=== PATIENT | male | born 1985 | race African-American/Black ===

== ENCOUNTER 2017-07-19 12:58 | Emergency (ER) | payer MEDICAID ==
[~2017-07-19] VITALS: Ht 175.3 cm; Wt 62.0 kg
[2017-07-19 13:15] VITALS: Ht 175.3 cm; Wt 62.0 kg
[2017-07-19] MEDS ORDERED: FAMOTIDINE 20 MG TAB PO STA (14:55)
[2017-07-19] MEDS ORDERED: morphine 4 MG/ML VIAL IV STA (14:55)
[2017-07-19] MEDS ORDERED: ONDANSETRON 4 MG INJ IV STA (14:55)
[2017-07-19 15:30] LABS: BASOPHILS % 0.5 % (0.0-2.0); EOSINOPHILS % 0.1 % (0.0-7.0); HEMATOCRIT 44.3 % (42.0-52.0); HEMOGLOBIN 16.1 g/dl (14.0-18.0); LYMPHOCYTES # 2.4 10^3/ul (0.8-2.9); MEAN CORPUSCULAR HEMOGLOBIN 29.3 pg (29.0-33.0); MEAN CORPUSCULAR HGB CONC 36.3 g/dl (32.0-37.0); MEAN CORPUSCULAR VOLUME 80.7 fl (82.0-101.0); MEAN PLATELET VOLUME 9.8 fl (7.4-10.4); MONOCYTE # 0.4 10^3/ul (0.3-0.9); MONOCYTES % 4.9 % (0.0-11.0); NEUTROPHIL # 4.7 10^3/ul (1.6-7.5); NEUTROPHILS % 62.1 % (39.0-77.0); PLATELET COUNT 327 10^3/UL (140-415); RED BLOOD COUNT 5.49 10^6/ul (4.70-6.10); RED CELL DISTRIBUTION WIDTH 12.8 % (11.5-14.5); WHITE BLOOD COUNT 7.6 10^3/ul (4.8-10.8)
[2017-07-19 15:55] LABS: ADD UMIC YES; ALBUMIN 5.5 g/dl (3.3-4.9); ALBUMIN/GLOBULIN RATIO 1.83; CALCIUM 9.8 mg/dl (8.4-10.2); CREATININE 0.81 mg/dl (0.61-1.24); TOTAL PROTEIN 8.5 g/dl (6.1-8.1); UR ASCORBIC ACID NEGATIVE (NEGATIVE); UR BILIRUBIN (Dip) NEGATIVE (NEGATIVE); UR BLOOD (Dip) 1+ mg/dL (NEGATIVE); UR CLARITY CLEAR (CLEAR); UR COLOR YELLOW (YELLOW); UR GLUCOSE (Dip) NEGATIVE (NEGATIVE); UR KETONES (Dip) NEGATIVE (NEGATIVE); UR LEUKOCYTE ESTERASE (Dip) NEGATIVE Leu/ul (NEGATIVE); UR MUCUS FEW /HPF (NONE SEEN); UR NITRITE (Dip) NEGATIVE (NEGATIVE); UR RBC 7 /HPF (0-5); UR SPECIFIC GRAVITY (Dip) 1.021 (1.003-1.030); UR TOTAL PROTEIN (Dip) 1+ mg/dl (NEGATIVE); UR UROBILINOGEN (Dip) NEGATIVE (NEGATIVE)
--- NOTE | 2017-07-19 16:19 | ERD ---
ER Documentation Chief Complaint Chief Complaint abdominal pain today, hx pancreatitis HPI This is a 32-year-old male who presents the emergency department today with abdominal pain that started earlier today. 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 States that he lives out in [place] but is out here in the area visiting his girlfriend. States that he usually drinks 1 pint of liquor a day. States he has had some nausea but no vomiting. Denies any fevers or chills. ROS All systems reviewed and are negative except as per history of present illness. Medications Home Meds Active Scripts Ondansetron Hcl* (Zofran*) 4 Mg Tablet, 4 MG PO Q6H for NAUSEA AND/OR VOMITING, #30 TAB Prov:NAN BARNARD PA-C 07/19/17 Famotidine* (Pepcid*) 20 Mg Tablet, 20 MG PO BID for 10 Days, TAB Prov:NAN BARNARD PA-C 07/19/17 Hydrocodone/Acetaminophen ([place] 5-325 Tablet) 1 Each Tablet, 1 TAB PO Q6H Y for PAIN, #7 TAB Prov:NAN BARNARD PA-C 07/19/17 PMhx/Soc Medical and Surgical Hx: pt denies Medical Hx, pt denies Surgical Hx Hx Alcohol Use: No Hx Substance Use: No Hx Tobacco Use: No Smoking Status: Never smoker Physical Exam Vitals Vital Signs Date Time Temp Pulse Resp B/P Pulse Ox O2 Delivery O2 Flow Rate FiO2 07/19/17 13:15 97.6 98 18 139/96 99 Physical Exam Const: NAD Head: Atraumatic Eyes: Normal Conjunctiva ENT: Normal External Ears, Nose and Mouth. Neck: Full range of motion..~ No meningismus. Resp: Clear to auscultation bilaterally Cardio: Regular rate and rhythm, no murmurs Abd: Soft, lower quadrant tenderness. Mild epigastric tenderness non distended. Normal bowel sounds right upper quadrant tenderness. No tenderness at McBurney's. Skin: No petechiae or rashes Back: No midline or flank tenderness Ext: No cyanosis, or edema Neur: Awake and alert Psych: Normal Mood and Affect Result Diagram: 07/19/17 1510 07/19/17 1510 Results 24 hrs Laboratory Tests Test 07/19/17 15:10 White Blood Count 7.610^3/ul Red Blood Count 5.4910^6/ul Hemoglobin 16.1g/dl Hematocrit 44.3% Mean Corpuscular Volume 80.7fl Mean Corpuscular Hemoglobin 29.3pg Mean Corpuscular Hemoglobin Concent 36.3g/dl Red Cell Distribution Width 12.8% Platelet Count 12438^3/UL Mean Platelet Volume 9.8fl Neutrophils % 62.1% Lymphocytes % 32.0% Monocytes % 4.9% Eosinophils % 0.1% Basophils % 0.5% Nucleated Red Blood Cells % 0.0/100WBC Neutrophils # 4.710^3/ul Lymphocytes # 2.410^3/ul Monocytes # 0.410^3/ul Eosinophils # 0.010^3/ul Basophils # 0.010^3/ul Nucleated Red Blood Cells # 0.010^3/ul Urine Color YELLOW Urine Clarity CLEAR Urine pH 6.0 Urine Specific [place] 1.021 Urine Ketones NEGATIVEmg/dL Urine Nitrite NEGATIVEmg/dL Urine Bilirubin NEGATIVEmg/dL Urine Urobilinogen NEGATIVEmg/dL Urine Leukocyte Esterase NEGATIVELeu/ul Urine Microscopic RBC 7/HPF Urine Microscopic WBC 0/HPF Urine Mucus FEW/HPF Urine Hemoglobin 1+mg/dL Urine Glucose NEGATIVEmg/dL Urine Total Protein 1+mg/dl Sodium Level 146mmol/L Potassium Level 4.0mmol/L Chloride Level 101mmol/L Carbon Dioxide Level 28mmol/L Anion Gap 21 Blood Urea Nitrogen 12mg/dl Creatinine 0.81mg/dl Glucose Level 96mg/dl Calcium Level 9.8mg/dl Total Bilirubin 1.0mg/dl Direct Bilirubin 0.00mg/dl Indirect Bilirubin 1.0mg/dl Aspartate Amino Transf (AST/SGOT) 93IU/L Alanine Aminotransferase (ALT/SGPT) 91IU/L Alkaline Phosphatase 89IU/L Total Protein 8.5g/dl Albumin 5.5g/dl Globulin 3.00g/dl Albumin/Globulin Ratio 1.83 Lipase 296U/L Current Medications Medications (Trade) Dose Ordered Sig/Tamiko Route PRN Reason Start Time Stop Time Status Last Admin Dose Admin Morphine Sulfate (morphine) 4 mg ONCE STAT IV 07/19/17 14:55 07/19/17 14:56 DC 07/19/17 15:34 Ondansetron HCl (Zofran Inj) 4 mg ONCE STAT IV 07/19/17 14:55 07/19/17 14:56 DC 07/19/17 15:34 Famotidine (Pepcid) 20 mg ONCE STAT PO 07/19/17 14:55 07/19/17 14:56 DC 07/19/17 15:34 Procedures/MDM Extremely well-appearing 32-year-old male who presents the emergency department today complaining of some abdominal pain that started earlier today. Patient indicated he has a history of pancreatitis secondary to alcohol. Patient was concerned that he feels that the tightness may be "coming back". Patient had some mild left lower quadrant pain and epigastric pain on physical exam. He indicated his last CT scan was the last time he was at the hospital in [facility] in April. Patient is afebrile and otherwise well-appearing. Indicated that in the past he had been given Dilaudid. Patient's first visit to this emergency department. On review of a [facility] report appears that patient has been given prescriptions for oxycodone, tramadol, [place] and Dilaudid by 4 different providers in the past dating back to February. It does not appear that patient has had a prescription since April [id number]. I did obtain laboratory workup given patient's history pancreatitis. Laboratory workup shows no elevated white blood cell count. He is not anemic. Platelets are within normal limits. Sodium is very mildly elevated otherwise electrolytes are within normal limits. Glucose is within normal limits. Liver enzymes are mildly elevated. Lipase is within normal limits. UA is Negative for infection. There are 7 microscopic red blood cells. Labs at this time was consistent with abdominal pain of uncertain etiology. There is no evidence to suggest acute pancreatitis at this time. Low suspicion for acute surgical abdomen. Patient was given morphine Pepcid and Zofran here in the emergency department. He reported feeling better. Patient was given a prescription for a very short course of [place] for home as well as Pepcid and Zofran. Plain to the patient that he needed to stop abusing alcohol. Patient indicated that he was considering getting into a treatment program. I also explained to the patient that he needed to have regular follow-up with a primary care doctor to follow his laboratory work. Patient understood At this time the patient is stable for discharge and outpatient management. Patient should follow up with their PCP in the next 1-2 days. They may return to the emergency department sooner for any persistent or worsening of symptoms. Patient understood and agreed with the plan. The patient with Dr. Anglin and he is in agreement with the plan Departure Diagnosis: Primary Impression: Abdominal pain Abdominal location: left lower quadrant Qualified Code: R10.32 - Left lower quadrant pain Condition: Fair NAN BARNARD PA-C Jul 19, 2017 16:19
[2017-07-19] MEDS ORDERED: HYDR-906 PO (16:22)
[2017-07-19] MEDS ORDERED: FAMO-96 PO (16:23)
[2017-07-19] MEDS ORDERED: ONDA4TAB8 PO (16:24)
== END 2017-07-19 16:35 | disposition home or self-care (01) ==
LOC: FTE 12:58
DX: R10.32 Left lower quadrant pain (principal); R11.0 Nausea
CPT/HCPCS: 36415; 80053; 81001; 83690; 85025; 96374; 96375; J2270; J2405; Z7502; Z7610